=== PATIENT | female | born 1990 | race Caucasian/White ===

== ENCOUNTER 2018-09-16 11:35 | Emergency (ER) | payer OTHER ==
[2018-09-16 12:24] VITALS: BMI 40.8
[2018-09-16] MEDS ORDERED: Polymyxin/Trimethoprim Ophth Soln OU STA (12:25)
[2018-09-16 13:10] VITALS: BP 134/51; PULSE 62; RESP 18; TEMP 97.5; O2SAT 99
[2018-09-16 13:56] LABS: BASO % 0.6 % (0.0-2.0); EOS # 0.1 K/uL (0.0-0.7); EOS % 0.8 % (0.0-4.0); HEMOGLOBIN 12.8 g/dL (12.0-16.0); LYMPH # 1.9 K/uL (1.0-4.3); LYMPH % 30.4 % (20.0-40.0); MEAN CELL VOLUME 85.2 fl (81.0-99.0); MEAN PLATELET VOLUME 8.7 fl (7.2-11.7); MONO # 0.8 K/uL (0.0-0.8); MONO % 13.2 % (0.0-10.0); NEUT # 3.3 K/uL (1.8-7.0); NRBC % 0.1 % (0.0-0.0); RBC 4.43 Mil/uL (3.80-5.20); RED CELL DISTRIBUTION WIDTH 12.8 % (11.5-14.5); WHITE BLOOD COUNT 6.1 K/uL (4.8-10.8)
--- NOTE | 2018-09-16 14:00 | ED PDOC ---
HPI: General Adult Time Seen by Provider: 09/16/18 11:56 Chief Complaint (Nursing): Abnormal Skin Integrity Chief Complaint (Provider): rash History Per: Patient History/Exam Limitations: no limitations Onset/Duration Of Symptoms: Days (5) Current Symptoms Are (Timing): Still Present Severity: Moderate Additional Complaint(s): 28yo female prior well notes she was [place] resort in [facility] last week, returned night, noticed a child in pool with rash, before return her ~2yo son developed fever, then rash over weekend to hands, feet, mouth, seen at [facility] and told "nothing to worry about" then seen at [facility] and told hand foot mouth disease, then thursday night patient developed low grade fever and malaise, sore throat. Rash then appeared thursday night, started on hands and feet, then overnight she developed redness to eyes and notes painful lesions in mouth. Fever resolved thursday. She has no real co ugh, no vomiting or diarrhea, no joint pains. Overall states feels a little better than earlier in week. States she and son are fully vaccinated including measles, she's lived in [place] her whole life. at home without symptoms. Past Medical History Reviewed: Historical Data, Nursing Documentation, Vital Signs Vital Signs: Last Vital Signs Temp 97.5 F L 09/16/18 13:07 Pulse 62 09/16/18 13:07 Resp 18 09/16/18 13:07 BP 134/51 L 09/16/18 13:07 Pulse Ox 99 09/16/18 13:07 Primary Care Provider: Non [facility] Provider, - Medical History PMH: No Chronic Diseases - Surgical History Other surgeries: foot surgery - Family History Family History: States: Unknown Family Hx - Living Arrangements Living Arrangements: With Family - Social History Current smoker - smoking cessation education provided: No - Allergies Allergies/Adverse Reactions: Allergies Allergy/AdvReac Type Severity Reaction Status Date / Time Penicillins Allergy Verified 09/16/18 12:24 Review of Systems Constitutional: Positive for: Fever, Malaise Eyes: Positive for: Conjunctivae Inflammation, Eyelid Inflammation, Redness. Negative for: Pain, Vision Change ENT: Positive for: Nose Discharge (trace), Nose Congestion, Throat Pain (mild). Negative for: Ear Pain, Throat Swelling Cardiovascular: Negative for: Chest Pain Respiratory: Negative for: Cough, Shortness of Breath Gastrointestinal: Negative for: Vomiting, Abdominal Pain, Diarrhea Genitourinary Female: Negative for: Dysuria, Hematuria Musculoskeletal: Negative for: Neck Pain, Back Pain Skin: Positive for: Rash, Lesions Neurological: Negative for: Weakness, Numbness, Headache, Dizziness Psych: Negative for: Suicidal ideation Physical Exam - Reviewed Nursing Documentation Reviewed: Yes Vital Signs Reviewed: Yes - Physical Exam Appears: Positive for: Non-toxic, No Acute Distress Head Exam: Positive for: ATRAUMATIC, NORMAL INSPECTION, NORMOCEPHALIC Skin: Positive for: Warm, Rash (macular papular rash to hands, feet including palms and soles, legs, arms, trunk, spares the face and neck) Eye Exam: Positive for: EOMI, Normal appearance, PERRL ENT: Positive for: Normal ENT Inspection Neck: Positive for: Normal, Painless ROM Cardiovascular/Chest: Positive for: Regular Rate, Rhythm Respiratory: Positive for: CNT, Normal Breath Sounds Gastrointestinal/Abdominal: Positive for: Normal Exam, Soft Back: Positive for: Normal Inspection Extremity: Positive for: Normal ROM Neurological/Psych: Positive for: Awake, Alert, Normal Tone - Laboratory Results Result Diagrams: 09/16/18 13:52 09/16/18 13:52 - ECG O2 Sat by Pulse Oximetry: 99 Medical Decision Making Medical Decision Making: rash is non-characteristic for measles- spares face/head/neck and started in extremities and progressed to trunk, also some areas of blisters and vesicles inconsistent with measles Fully vaccinated D/w Dr Mauro [employer] plant operator ID, more likely coxasackie virus, but send measles Abs. Isolation for now. basic labs reviewed and unremarkable discussed with Susan at [facility] [phone] Agrees based on symptoms, timeline and rash characteristics, less likely to be measles but will monitor IGM, self isolate anyway as coxasackie is contagious, given masks to wear if must go out, avoid contact with others, they will followup, given updated [id number] [phone], phone number confirmed as correct in demographics. Polytrim sample given 1gtt q4 each eye, followup optho if worsens. Disposition - Clinical Impression Clinical Impression: Rash and nonspecific skin eruption, Conjunctivitis, History of fever - Patient ED Disposition Is Patient to be Admitted: No - Disposition Referrals: [facility] [Outside] John Georges MD [Staff Provider] - Condition: STABLE Additional Instructions: SELF ISOLATE THIS WEEKEND/ AVOID PUBLIC PLACES. Use eye drops one drop to each eye every 4 hours for 5 days. YOUR CASE WAS DISCUSSED WITH THE [facility]. THEY WILL FOLLOWUP WITH YOU. WEAR MASK IF YOU MUST GO OUT. HAND FOOT AND MOUTH DISEASE IS VERY CONTAGIOUS, AVOID CONTACT WITH OTHERS. MEASLES ANTIBODIES WERE SENT, THESE SHOULD RETURN IN 3-5 DAYS. YOU WILL BE CALLED IF POSITIVE. Instructions: Hand, Foot, and Mouth Disease, Skin Rash (DC), Conjunctivitis (Pinkeye), How to Use Eye Drops Forms: [facility] ([place])
[2018-09-16 14:28] LABS: ALB/GLOB RATIO 1.2 (1.0-2.1); ALBUMIN 4.5 g/dL (3.5-5.0); ALT/SGPT 46 U/L (9-52); AST/SGOT 38 U/L (14-36); BLOOD UREA NITROGEN 13 mg/dl (7-17); GFR NON-AFRICAN AMERICAN > 60
== END 2018-09-16 16:08 | disposition home or self-care (01) ==
LOC: H.ER 11:35
DX: R21 Rash and other nonspecific skin eruption (principal); H10.9 Unspecified conjunctivitis; R50.9 Fever, unspecified; Z88.0 Allergy status to penicillin